=== PATIENT | female | born 1995 | race Caucasian/White ===

== ENCOUNTER 2025-08-03 07:24 | Emergency (ER) | payer OTHER, SELFPAY ==
[2025-08-03 07:28] VITALS: BP 143/83
[2025-08-03 07:56] LABS: Hematocrit 41.5 % (37.0-47.0); Hemoglobin 14.8 g/dL (12.0-16.0); Mean Corp Hgb Conc. 35.7 g/dL (33.0-37.0); Mean Corpuscular Volume 90.6 fL (81.0-99.0); Nucleated Red Blood Cells % 0 %; Platelet Count 262 10^3/uL (130-400); Red Cell Dist. Width 12.5 % (11.5-14.5)
[2025-08-03 08:01] LABS: HCG, Serum Qualitative Screen Negative
[2025-08-03 08:08] LABS: ALT (SGPT) 28 U/L (0-35); AST (SGOT) 29 U/L (14-36); Albumin 5.3 g/dl (3.5-5.0); Alkaline Phosphatase 57 U/L (38-126); Blood Urea Nitrogen 13 mg/dl (7-17); Calcium 9.9 mg/dl (8.4-10.2); Carbon Dioxide 23 mmol/L (22-30); Chloride 102 mmol/L (98-107); Glucose 112 mg/dl (70-99); Lipase 68 U/L (23-300); Potassium 3.8 mmol/L (3.5-5.1); Sodium 139 mmol/L (135-145); Total Protein 8.5 g/dl (6.3-8.2); eGFR > 60.00
[2025-08-03 09:00] VITALS: BP 135/88
[2025-08-03] MEDS: HALDOL 5 MG IM (09:46)
[2025-08-03] MEDS: TORADOL 15 MG IV (09:50)
[2025-08-03] MEDS: PEPCID 20 MG IV (09:51)
[2025-08-03] MEDS: NSS 1000 IV (09:53)
--- NOTE | 2025-08-03 09:54 | ED.GENMED ---
History of Present Illness
General
Chief Complaint: Abdominal Symptoms
Source: patient
Exam Limitations: none
Time Seen by Provider: 08/03/25 08:41
History of Present Illness
History of Present Illness:
30yoF with history of depression on medical marijuana presenting with her mother for evaluation of vomiting. Symptoms began yesterday morning. She reports vomiting 'hundreds' of time since then. She denies any suspicious food intake, recent
travel, sick contacts. She does vomit most days in the morning but this typically improves throughout the day. She tried ODT Zofran without any relief. She reports abdominal pain particularly when she is vomiting which resolves after she is done.
She currently reports some 'aching' in her abdomen with some loose stool. No hematemesis or fevers. No previous abdominal surgeries. She is scheduled to see gastroenterology in November and is on a waiting list.
Past History
Past History
ED Past Medical History: Psychiatric (Depression)
ED Past Surgical History: None
Social History
Tobacco: Non-smoker
Alcohol: None
Drug: None
Personal: Single
Living: with family
Employment: Student
Family History
Family History: Other (Noncontributory)
Phy Exam
Physical Exam
Physical Exam:
Retching during exam
General Physical Exam
General Presentation: mild distress
General Skin: warm and dry
General Habitus: normal
General Mental: alert
ENT Exam
ENT Exam: normocephalic
Cardiovascular Exam
Cardiovascular Exam: regular rate/rhythm
Pulmonary Exam
Pulmonary Exam: lungs clear, no respiratory distress, no rales, no crackles, no rhonchi and no wheezing
Gastrointestinal Exam
Gastrointestinal Exam: non tender, soft and non distended
Neurological Exam
Neurological Exam: alert
Ángel Coma Scale
Eye Opening: Spontaneous
Verbal Response: Oriented
Motor Response: Obeys Commands
GCS Total Score: 15
Skin Exam
Skin Exam: normal color and warm/dry
Psychiatric Exam
Psychiatric Exam: normal mood/affect
Course
Orders/Labs/Results
Orders:
Orders
08/03/25 07:30
Test Result ONCE
08/03/25 07:41
Complete Blood Count/With Diff Urgent
Comprehensive Metabolic Panel Urgent
HCG, Serum Qualitative Screen Urgent
Lipase Urgent
08/03/25 09:30
Ondansetron Injectable [Zofran] 4 mg .ROUTE .STK-MED ONE
08/03/25 09:31
Haloperidol Lactate [Haldol] 5 mg .ROUTE .STK-MED ONE
08/03/25 09:36
0.9% Sodium Chloride 1000 ml [Nss] 1,000 ml IV BOLUS
Famotidine [Pepcid] 20 mg IV NOW STA
Haloperidol Lactate [Haldol] 5 mg IM NOW STA
Ketorolac [Toradol] 15 mg IV NOW STA
08/03/25 09:55
Urinalysis Reflex To Culture Urgent
Date Specimen was Collected: 08/03/25
Time Specimen was Collected: 09:54
Urine Microscopic Reflex Cult Urgent
Urine Culture Urgent
OK Source: U
Specimen Description:
Date Specimen was Collected: 08/03/25
Time Specimen was Collected: 09:54
Abnormal Lab Results
08/03/25 08/03/25
07:41 09:55
WBC 17.6 H 10^3/uL
(4.8-10.8)
MCH 32.3 H pg
(27.0-31.0)
MPV 10.7 H fL
(7.4-10.4)
Abs Immat Gran (auto) 0.1 H 10^3/uL
(0-0.05)
Absolute Neuts (auto) 14.9 H 10^3/uL
(1.4-6.5)
Absolute Monos (auto) 0.8 H 10^3/uL
(0.1-0.6)
Neutrophils % 85.0 H %
(42.2-75.2)
Lymphocytes % 9.7 L %
(20.5-51.1)
Glucose 112 H mg/dl
(70-99)
Total Bilirubin 1.7 H mg/dl
(0.2-1.3)
Total Protein 8.5 H g/dl
(6.3-8.2)
Albumin 5.3 H g/dl
(3.5-5.0)
Urine Ketones 3+ A
(Negative)
Ur Occult Blood Reflex 3+ A
(Negative)
Urine Bilirubin 1+ A
(Negative)
Leukocyte Esterase Rfl 2+ A
(Negative)
Urine RBC 7-10 A /HPF
(0-2)
Urine WBC (Reflex) 30-40 A /HPF
(0-5)
Urine Bacteria (Reflex) Moderate A
(Negative)
Urine Albumin (Reflex) 3+ A
(Neg - Trace)
08/03/25 07:41
08/03/25 07:41
Vital Signs
Initial and Last Documented VS:
Initial Vital Signs
Temp Pulse Resp BP Pulse Ox
98.2 F 80 17 143/83 99
08/03/25 07:28 08/03/25 07:28 08/03/25 07:28 08/03/25 07:28 08/03/25 07:28
Last Documented Vital Signs
Temp Pulse Resp BP Pulse Ox
98.2 F 79 20 119/88 99
08/03/25 07:28 08/03/25 13:07 08/03/25 13:07 08/03/25 13:07 08/03/25 13:07
MDM/Problems Addressed
Differential Diagnosis Includes:
30yoF here with vomiting x 1 day. Reports vomiting hundreds of times. Uses medical marijuana daily. VSS. Patient is retching on exam. Abdominal exam is benign. Differential diagnosis includes but is not limited to: Cannabinoid hyperemesis
syndrome, cyclic vomiting syndrome, gastroenteritis, dehydration,
Initial ED plan: Labs obtained in triage. Leukocytosis noted with a white count of 17 which is likely reactive secondary to vomiting. Electrolytes and renal function normal. hCG negative. IM Haldol, Pepcid, Toradol, and fluid bolus ordered for
symptoms.
*Pulse Oximetry
SaO2: 99
Oxygen Mode of Delivery: Room air
Patient hypoxic: no
*Critical Care Note
Total Time (30-74mins, 75-104mins- exclusive of procedures): Not Applicable
Update Note
Update Note:
UA obtained which shows 30-40 WBCs and moderate bacteria although >30/LPF present suggesting contaminated sample. On reassessment, patient is feeling significantly improved. She was able to tolerate PO fluids without difficulty. She feels well
for discharge. Discussed possibility of cannabinoid hyperemesis with patient and marijuana cessation recommended. Refill provided for ODT Zofran and supportive care discussed including bland diet. She already has an appointment with GI scheduled
in November but was also advised to follow-up with PCP. ED return precautions reviewed and she was discharged in stable condition.
ED Attending Note
-
Portions of this chart may have been created with voice recognition software.� Occasional wrong word or��sound alike� substitutions may have occurred due to the inherent limitations of voice recognition software.
Discharge Plan
Departure
Patient Disposition: Home (Routine Discharge)
Date of Disposition: 08/03/25
Time of Disposition: 12:36
Patient with high blood pressure during this ER visit?: Yes
Discharge Problem:
Nausea and vomiting
Instructions: Nausea and Vomiting, Adult (DC)
Prescriptions:
New
ondansetron 4 mg tablet,disintegrating
4 mg PO Q6H PRN (Reason: nausea and vomiting) Qty: 20 0RF
No Action
One Tablet
1 tab PO DAILY
ibuprofen 600 MG tablet
600 mg PO Q4HPRN PRN (Reason: moderate pain/cramps) 0RF
lidocaine 1 PATCH adhesive patch,medicated
1 patch topical DAILY PRN (Reason: pain) Qty: 30 0RF
Rx Instructions:
ON FOR 12 HOURS, OFF FOR 12 HOURS
metaxalone [Skelaxin] 800 MG tablet
800 mg PO BID PRN (Reason: pain) Qty: 15 0RF
Referrals:
Nasir Ahuja DO [Family Provider, Family Practice]
Activity Restrictions/Additional Instructions:
Take Zofran as needed for nausea. Drink plenty of fluids and eat a bland diet (bananas, rice, applesauce, toast). Stop smoking marijuana.
Please follow-up with your family doctor and gastroenterology. Return to the ER with any worsening symptoms including inability to keep down fluids.
Interventions
Interventions:
*Risk Screen - Suicide Last Done: 08/03/25 07:30
*General Assessment Last Done: 08/03/25 07:30
*Neglect/Abuse Screening Last Done: 08/03/25 07:30
*ED COVID-19 Vaccine History Last Done: 08/03/25 07:30
*ED Influenza Vaccine History Last Done: 08/03/25 07:30
*Nursing Disposition Last Done: 08/03/25 13:07
[facility] Assessment Last Done: 08/03/25 09:40
Discharge Date and Time
Discharge Date/Time: 08/03/25 13:07
Print Language: UZBEK
[2025-08-03 10:22] LABS: Urine Character Clear (Clear)
[2025-08-03 10:52] LABS: Urine Squamous Cell >30 /LPF (Few)
[2025-08-03 10:55] LABS: Urine White Cell 30-40 /HPF (0-5)
[2025-08-03 11:00] VITALS: BP 124/67
[2025-08-03 13:07] VITALS: BP 119/88
== END 2025-08-03 13:07 | disposition home or self-care (01) ==
LOC: EMR 07:24
PROVIDERS: Emergency Medicine; Physician Assistant; EMERGENCY PHYSICIAN Emergency Medicine; FAMILY PHYSICIAN Family Medicine
DX: R11.2 Nausea with vomiting, unspecified (principal); D72.829 Elevated white blood cell count, unspecified; R03.0 Elevated blood-pressure reading, without diagnosis of hypertension; F32.A Depression, unspecified
CPT/HCPCS: 99284; 96374; 96375; 96361; 96372; 80053; 81003; 81015; 83690; 84703; 85025; 87086

== ENCOUNTER 2025-08-18 02:42 | Emergency (ER) | payer OTHER, SELFPAY ==
[2025-08-18 02:47] VITALS: BP 136/96
[2025-08-18 03:05] VITALS: BMI 20.3
[2025-08-18 03:38] LABS: HCG, Urine Qualitative Screen Negative
--- NOTE | 2025-08-18 04:40 | ED.GENMED ---
History of Present Illness
General
Chief Complaint: Crisis Evaluation
Source: patient, family (Friend who has brought her to the ED.) and previous hospital records (ED visit August 02 where patient presented with recurrent vomiting. Thought to be cannabis hyperemesis syndrome and encouraged to discontinue all
cannabis use.)
Exam Limitations: none
Time Seen by Provider: 08/18/25 04:37
Nursing documentation reviewed up to this point in time: agreed with except (Patient adamantly denies suicidal thoughts or plan. She also denies that she is seeking inpatient psychiatric treatment. She is however requesting help with outpatient
treatment programs.)
History of Present Illness
History of Present Illness:
This is a 30-year-old female with longstanding history of anxiety, PTSD, obsessive-compulsive disorder, borderline personality who presents with 1 week history of progressive anxiety, difficulty sleeping and admits to auditory hallucinations. She
adamantly denies suicidal thoughts or plans.
She has been trialed on various different psychiatric medications throughout the years with reported poor success.
More recently was evaluated in this ED August 02 with complaints of recurrent vomiting that was thought to be related to cannabis hyperemesis syndrome. She admits to daily cannabis use but has been significantly curtailing her cannabis since that
ED visit. No recurrent episodes of vomiting.
She arrives accompanied with her ex-boyfriend who remains close and supportive.
Past History
Past History
ED Past Medical History: Psychiatric (Depression)
ED Past Surgical History: None
Social History
Tobacco: Non-smoker
Alcohol: None
Drug: Marijuana
Personal: Single
Living: with family
Employment: Student
Family History
Family History: Other (Noncontributory)
Phy Exam
Physical Exam
Physical Exam:
GENERAL: 30-year-old female appears her stated age, awake and alert, mildly anxious. Easily communicative. Maintains eye contact.
EYE: pupils equal and reactive. anicteric
NECK: Supple, nontender, no meningismus, no significant adenopathy.
ENT: oral mucosa is moist. No rhinorrhea.
CARDIAC: Regular rate and rhythm. no murmur.
LUNGS: Clear breath sounds bilaterally, no acute respiratory distress, no wheezes/rales/rhonchi
ABDOMEN: Soft, nondistended, without focal tenderness
NEUROLOGICAL: Alert and oriented x3, no focal neuro deficits. Gait is trevino and steady.
SKIN: Warm and dry, normal color, skin intact. No rash.
MUSCULOSKELETAL: No C/C/E. peripheral pulses are full and equal b/l. No palpable tenderness.
PSYCH: Mildly anxious. Admits to auditory hallucinations. Denies suicidal thoughts or plan. Remains goal-directed, future oriented.
Course
Orders/Labs/Results
Orders:
Orders
08/18/25 03:21
Crisis Consult Urgent
Reason for Consult: visual and auditory hallucinations. previous SI
08/18/25 03:23
Test Result ONCE
08/18/25 03:26
HCG, Urine Qualitative Screen Urgent
Date Specimen was Collected: 08/18/25
Time Specimen was Collected: 03:23
Urine Drug Abuse Screen Urgent
Date Specimen was Collected: 08/18/25
Time Specimen was Collected: 03:23
Abnormal Lab Results
08/18/25
03:26
U Marijuana (THC) Screen Positive H
(Negative)
Vital Signs
Initial and Last Documented VS:
Initial Vital Signs
Temp Pulse Resp BP Pulse Ox
98.4 F 117 24 136/96 99
08/18/25 02:47 08/18/25 02:47 08/18/25 02:47 08/18/25 02:47 08/18/25 02:47
Last Documented Vital Signs
Temp Pulse Resp BP Pulse Ox
98.4 F 117 24 136/96 99
08/18/25 02:47 08/18/25 02:47 08/18/25 02:47 08/18/25 02:47 08/18/25 03:05
MDM/Problems Addressed
Differential Diagnosis Includes:
Concern for exacerbation of bipolar disorder
Acute anxiety/panic disorder
Concern for substance use disorder
Will check UDS as well as urine hCG.
Will consult [facility].
MDM/Problems Addressed:
Generalized anxiety, poor sleep, auditory hallucinations.
Although somewhat anxious, speech pattern is normal, she adamantly denies suicidal thoughts or plan.
She is accompanied by a friend whom appear supportive and reliable.
Although admits to hearing voices, she has not been responding to these internal stimuli.
She is seeking help but currently does not feel she needs inpatient psychiatric treatment. She is however amenable to intensive outpatient treatment.
Will check UDS as well as urine hCG.
Will consult [facility].
Chronic conditions affecting care: Psychiatric illness
Acute Exacerbation and/or Progression of Chronic Illness: Psychiatric illness
*Pulse Oximetry
SaO2: 99
Oxygen Mode of Delivery: Room air
Patient hypoxic: no
*Critical Care Note
Total Time (30-74mins, 75-104mins- exclusive of procedures): Not Applicable
Update Note
Update Note:
UDS is positive only for THC. hCG is negative.
Patient has been evaluated by [facility] crisis and has been provided with referral information for outpatient psychiatric treatment programs. Crisis counselor does not feel patient requires inpatient treatment at this time.
Patient continues to deny suicidal thoughts or plan and although is somewhat anxious she remains goal-directed and does not appear to require inpatient psychiatric treatment.
She does admit to difficulty sleeping over the past week and thus we will give a one-time dose of lorazepam to hopefully afford some sleep tonight.
Recommend prompt follow-up with outpatient psychiatric treatment evaluation.
ED Attending Note
-
Portions of this chart may have been created with voice recognition software.� Occasional wrong word or��sound alike� substitutions may have occurred due to the inherent limitations of voice recognition software.
Discharge Plan
Departure
Patient Disposition: Home (Routine Discharge)
Date of Disposition: 08/18/25
Time of Disposition: 04:43
Patient with high blood pressure during this ER visit?: No
Condition: Good
Discharge Problem:
Bipolar disorder with psychotic features
Instructions: Bipolar disorder (DC), Good sleep hygiene
Prescriptions:
No Action
One Tablet
1 tab PO DAILY
ibuprofen 600 MG tablet
600 mg PO Q4HPRN PRN (Reason: moderate pain/cramps) 0RF
lidocaine 1 PATCH adhesive patch,medicated
1 patch topical DAILY PRN (Reason: pain) Qty: 30 0RF
Rx Instructions:
ON FOR 12 HOURS, OFF FOR 12 HOURS
metaxalone [Skelaxin] 800 MG tablet
800 mg PO BID PRN (Reason: pain) Qty: 15 0RF
ondansetron 4 mg tablet,disintegrating
4 mg PO Q6H PRN (Reason: nausea and vomiting) Qty: 20 0RF
Referrals:
Nasir Ahuja DO [Family Provider, Family Practice] - Call in 1-3 days for appt
Interventions
Interventions:
*Risk Screen - Suicide Last Done: 08/18/25 02:47
*General Assessment Last Done: 08/18/25 02:47
*Neglect/Abuse Screening Last Done: 08/18/25 02:47
*ED- Fall Risk Assessment Last Done: 08/18/25 02:47
*ED COVID-19 Vaccine History Last Done: 08/18/25 02:47
*ED Influenza Vaccine History Last Done: 08/18/25 02:47
ED-Psychological Assessment Last Done: 08/18/25 03:05
Discharge Date and Time
Print Language: TELUGU
[2025-08-18] MEDS: ATIVAN 1 MG PO (04:47)
== END 2025-08-18 04:56 | disposition home or self-care (01) ==
LOC: EMR 02:42
PROVIDERS: EMERGENCY PHYSICIAN Emergency Medicine; FAMILY PHYSICIAN Family Medicine
DX: F31.9 Bipolar disorder, unspecified (principal); R11.16 Cannabis hyperemesis syndrome; F41.1 Generalized anxiety disorder; F42.9 Obsessive-compulsive disorder, unspecified; F19.10 Other psychoactive substance abuse, uncomplicated; F12.90 Cannabis use, unspecified, uncomplicated; F60.3 Borderline personality disorder
CPT/HCPCS: 99282; 80306; 81025

== ENCOUNTER 2025-08-18 09:56 | Emergency (ER) | payer OTHER, SELFPAY ==
[2025-08-18 09:58] VITALS: BP 116/90
--- NOTE | 2025-08-18 10:23 | ED.GENMED ---
History of Present Illness
General
Chief Complaint: Psychiatric Problem
Time Seen by Provider: 08/18/25 10:23
History of Present Illness
History of Present Illness:
FOCUSED PAST MEDICAL HISTORY
- Anxiety, OCD, PTSD, has had suicide attempt
REVIEW OF OLD RECORDS
- I reviewed records, the patient was seen earlier this morning. It was documented that the patient has a history of borderline personality with worsening anxiety over the past month along with auditory hallucinations but denied suicidal thought as
of this morning. She has been on several different medications earlier. She was felt to however cannabinoid hyperemesis syndrome about 2 weeks ago. Earlier this morning, her UDS was positive for marijuana only.
Note:
CHIEF COMPLAINT(S)
Hearing and seeing things, anxiety, sleep disturbances.
HISTORY OF PRESENT ILLNESS
The patient is a 30-year-old female who presents with symptoms of hearing noises, such as people jumping on the roof, knocking, and tapping on windows. She states, 'Its definitely not in my head.' Her sleeplessness has contributed to her fear and
anxiety, believing individuals are intruding on her property. She resides with her stepfather, mother, and son in a complicated living situation after previously evicting an individual. The patient describes her stress due to her job and personal
relationships, which might be contributing to her current symptoms.
ADDITIONAL HISTORY OBTAINED FROM SOURCES OTHER THAN THE PATIENT
According to the patients mother, about a week ago, the patient stopped eating and hasnt slept much recently. The mother reports the patient is hearing and seeing things but confirms there is no evidence of these occurrences. She describes her
daughter as having the mentality of a teenager despite being 30 years old and suggests possible stress-inducement from work and personal life. The patient has a history of psychiatric hospital visits during middle school due to past trauma.
SOCIAL DETERMINANTS AFFECTING HEALTH
The patients mother noted stress related to the patients job and personal relationships. There is a mention of a history of alcohol consumption following traumatic experiences.
PHYSICAL EXAM
General: Alert, no acute distress.
Skin: Warm, dry.
Head: Normocephalic, atraumatic.
Neck: Supple, trachea midline.
Eye, Ears, Nose, Mouth, and Throat: Oral mucosa moist.
Cardiovascular: Normal peripheral perfusion, no edema. Tachycardic.
Respiratory: Respirations are non-labored.
Gastrointestinal: Abdomen nondistended.
Back: Normal range of motion, normal alignment.
Musculoskeletal: Normal range of motion, normal strength.
Neurological: Alert and oriented to person, place, time, and situation. No focal neurological deficit observed.
Psychiatric: Cooperative, exhibits pressured speech and tangential thoughts.
DIFFERENTIAL DIAGNOSIS
The Differential Diagnosis includes, in no particular order and is not limited to:
1. Anxiety disorder
2. Schizophrenia
3. Bipolar disorder
4. Sleep deprivation
5. Schizoaffective disorder
6. Major depressive disorder with psychotic features
7. Substance-induced psychotic disorder
8. Delusional disorder
9. Post-traumatic stress disorder (PTSD)
10. Borderline personality disorder
UPDATE
-SUMMARY OF ENCOUNTER
The patient was evaluated by crisis intervention due to auditory hallucinations and anxiety, with no other acute medical issues noted. After assessment, it was determined that a higher level of care was necessary.
DISPOSITION
Transfer to [facility] for further psychiatric treatment. The transfer was facilitated by crisis intervention, and the patients mother agreed to drive her there immediately.
MANAGEMENT OF THE PATIENTS CARE WAS DISCUSSED WITH
Crisis intervention team and the patients mother were involved in the discussion regarding the transfer plan and need for further psychiatric care.
DIAGNOSIS
- Auditory hallucinations, unspecified (R44.0)
- Anxiety disorder, unspecified (F41.9)
Past History
Past History
ED Past Medical History: Psychiatric (Depression)
ED Past Surgical History: None
Social History
Tobacco: Non-smoker
Alcohol: None
Drug: Marijuana
Personal: Single
Living: with family
Employment: Student
Family History
Family History: Other (Noncontributory)
Phy Exam
Physical Exam
Physical Exam:
See HPI
Course
Orders/Labs/Results
Orders:
Orders
08/18/25 10:06
1:1 Observation - Suicide/ Violent Behavior As Directed
Crisis Consult Urgent
Reason for Consult: suicidal ideation
Vital Signs
Initial and Last Documented VS:
Initial Vital Signs
Temp Pulse Resp BP Pulse Ox
36.4 C 116 16 116/90 98
08/18/25 09:58 08/18/25 09:58 08/18/25 09:58 08/18/25 09:58 08/18/25 09:58
Last Documented Vital Signs
Temp Pulse Resp BP Pulse Ox
36.4 C 116 16 116/90 98
08/18/25 09:58 08/18/25 09:58 08/18/25 09:58 08/18/25 09:58 08/18/25 10:25
*Pulse Oximetry
SaO2: 98
Oxygen Mode of Delivery: Room air
Patient hypoxic: no
*Critical Care Note
Total Time (30-74mins, 75-104mins- exclusive of procedures): Not Applicable
ED Attending Note
-
Portions of this chart may have been created with voice recognition software.� Occasional wrong word or��sound alike� substitutions may have occurred due to the inherent limitations of voice recognition software.
Discharge Plan
Departure
Patient Disposition: Psych Facility
Date of Disposition: 08/18/25
Time of Disposition: 12:18
Discharge Problem:
Psychosis
Instructions: Psychosis (DC), BLOOD PRESSURE
Prescriptions:
No Action
One Tablet
1 tab PO DAILY
ibuprofen 600 MG tablet
600 mg PO Q4HPRN PRN (Reason: moderate pain/cramps) 0RF
lidocaine 1 PATCH adhesive patch,medicated
1 patch topical DAILY PRN (Reason: pain) Qty: 30 0RF
Rx Instructions:
ON FOR 12 HOURS, OFF FOR 12 HOURS
metaxalone [Skelaxin] 800 MG tablet
800 mg PO BID PRN (Reason: pain) Qty: 15 0RF
ondansetron 4 mg tablet,disintegrating
4 mg PO Q6H PRN (Reason: nausea and vomiting) Qty: 20 0RF
Referrals:
Nasir Ahuja DO [Family Provider, [facility]]
Activity Restrictions/Additional Instructions:
Proceed directly to [facility]. Return if worse or other concerns. You were seen by crisis who facilitated placement at [facility].
Interventions
Interventions:
*Risk Screen - Suicide Last Done: 08/18/25 09:58
*General Assessment Last Done: 08/18/25 09:58
*Neglect/Abuse Screening Last Done: 08/18/25 09:58
Discharge Date and Time
Print Language: MOSOTHO
== END 2025-08-18 12:42 ==
LOC: EMR 09:56
PROVIDERS: EMERGENCY PHYSICIAN Emergency Medicine; FAMILY PHYSICIAN Family Medicine
DX: F29 Unspecified psychosis not due to a substance or known physiological condition (principal); R45.851 Suicidal ideations; F41.9 Anxiety disorder, unspecified; F42.9 Obsessive-compulsive disorder, unspecified; F43.10 Post-traumatic stress disorder, unspecified; F60.3 Borderline personality disorder; G47.00 Insomnia, unspecified
CPT/HCPCS: 99285